=== PATIENT | male | born 1985 | race Two or more races ===

== ENCOUNTER 2020-12-29 20:55 | Observation (INO) | payer MEDICAID, OTHER ==
--- NOTE | 2020-12-29 21:54 | EDM.PDOC ---
ED HPI GENERAL MEDICAL PROBLEM - General Chief Complaint: Head Injury Stated Complaint: syncope/head trauma Time Seen by Provider: 12/29/20 21:00 Source of Information: Reports: Patient History Limitations: Reports: No Limitations - History of Present Illness INITIAL COMMENTS - FREE TEXT/NARRATIVE: Franky is a 35 year old male who presents to ER after a syncopal episode and head trauma. Patient states that since he got his vaccine last Saturday, has developed a tickle in his throat that leads to significant coughing spells. Xavier was sitting in his chair, had a coughing spell and "somehow ended up face first on the floor". Believes he "fainted" and fell to the floor. Has a large hematoma to his forehead. Was able to get self up from the floor. Has headache now. No numbness, tingling or weakness in his arms or legs. Denies visual changes. No nausea or vomiting. No epistaxis, no bleeding from ears. No chest discomfort. NO shortness of breath. Denies any lightheaded or dizziness at present. Has not had issues with syncopal episodes other than one other time this week after a coughing spell as well. Onset: Today, Sudden Duration: Minutes: Location: Reports: Head Quality: Reports: Ache Severity: Moderate Associated Symptoms: Reports: Headaches, Syncope. Denies: Confusion, Chest Pain, Cough, Fever/Chills, Loss of Appetite, Malaise, Nausea/Vomiting, Seizure, Shortness of Breath, Weakness Head Pain Score (Numeric/FACES): 6 - Related Data Allergies Allergy/AdvReac Type Severity Reaction Status Date / Time No Known Allergies Allergy Verified 12/29/20 21:27 Home Meds: Home Meds . [No Known Home Meds] 12/29/20 [History] Past Medical History - Past Health History Medical/Surgical History: Denies Medical/Surgical History Social & Family History - Tobacco Use Tobacco Use Status *Q: Never Tobacco User - Alcohol Use Days Per Week of Alcohol Use: 7 Number of Drinks Per Day: 2 Total Drinks Per Week: 14 Date of Last Drink: 12/29/20 - Recreational Drug Use Recreational Drug Use: No ED ROS GENERAL - Review of Systems Review Of Systems: See Below Constitutional: Denies: Fever, Chills, Malaise, Weakness, Fatigue, Decreased Appetite HEENT: Denies: Ear Discharge, Ear Pain, Nosebleed, Nose Pain, Rhinitis, Sinus Problem, Throat Pain, Vision Change Respiratory: Denies: Shortness of Breath, Cough Cardiovascular: Denies: Chest Pain, Edema, Lightheadedness Endocrine: Denies: Fatigue GI/Abdominal: Denies: Abdominal Pain, Constipation, Diarrhea, Nausea, Vomiting : Reports: No Symptoms Musculoskeletal: Reports: No Symptoms Skin: Reports: Wound, Other (lump to right forehead) Neurological: Denies: Confusion, Dizziness, Headache, Numbness, Syncope, Tingling, Trouble Speaking, Weakness Psychiatric: Reports: No Symptoms ED EXAM, HEAD INJURY - Physical Exam Exam: See Below Exam Limited By: No Limitations General Appearance: Alert, WD/WN, No Apparent Distress Head: Normocephalic, Scalp Hematoma Eyes: Bilateral Eye: EOMI, PERRL, Other (subconjuctival hemorrhage) Ears: Normal External Exam, Normal TMs Nose: Normal Inspection, Normal Mucousa, No Blood Throat/Mouth: Normal Inspection, Normal Oropharynx Neck: Non-Tender, Full Range of Motion, Normal Alignment Respiratory: No Respiratory Distress, Lungs Clear, Normal Breath Sounds Cardiovascular: Regular Rate, Rhythm GI/Abdominal Exam: Normal Bowel Sounds, Soft, Non-Tender Extremities: Normal Inspection, No Pedal Edema Neurologic: nurse private duty II-XII nml As Tested, No Motor/Sensory Deficits, Alert, Normal Mood/Affect, Oriented x 3 Skin: Normal Color, Warm/Dry Course - Vital Signs Last Recorded V/S: Last Vital Signs Temp 97.2 F 12/29/20 22:51 Pulse 95 12/29/20 22:51 Resp 18 12/29/20 22:51 BP 138/85 12/29/20 22:51 Pulse Ox 97 12/29/20 22:51 - Orders/Labs/Meds Orders: Medication Orders Acetaminophen (Acetaminophen 325 Mg Tab) 650 mg PO Q4H PRN PRN Reason: Pain (Mild 1-3)/fever Ondansetron HCl (Ondansetron 4 Mg Tab.Dis) 4 mg PO Q4H PRN PRN Reason: nausea, able to take PO Ondansetron HCl (Ondansetron 4 Mg/2 Ml Sdv) 4 mg IV Q4H PRN PRN Reason: Nausea/Vomiting Sodium Chloride (Sodium Chloride 0.9% 10 Ml Syringe) 10 ml FLUSH ASDIRECTED PRN PRN Reason: Keep Vein Open Meds: Medications Generic Name Dose Route Start Last Admin Trade Name Freq PRN Reason Stop Dose Admin Acetaminophen 650 mg 12/29/20 22:50 Acetaminophen 325 Mg Tab PO Q4H PRN Pain (Mild 1-3)/fever Ondansetron HCl 4 mg 12/29/20 22:50 Ondansetron 4 Mg Tab.Dis PO Q4H PRN nausea, able to take PO Ondansetron HCl 4 mg 12/29/20 22:50 Ondansetron 4 Mg/2 Ml Sdv IV Q4H PRN Nausea/Vomiting Sodium Chloride 10 ml 12/29/20 22:50 Sodium Chloride 0.9% 10 Ml Syringe FLUSH ASDIRECTED PRN Keep Vein Open - Re-Assessments/Exams Free Text/Narrative Re-Assessment/Exam: 12/29 Did contact [facility] and spoke with Dr. Bridges in regards to head trauma with lack of ability to obtain head CT. He states could do CT but do not have capacity to accept the patient if any neurological concerns as have no available beds. Is neurologically intact. Follows all commands. Is appropriate. Contacted [facility] and spoke with DR. Moore. Also feels to not have capacity to care for patient there although can do CT scan. Will admit here and continue to evaluate neuro checks, monitor telemetry and transfer if able if develops any neurological changes. Departure - Departure Time of Disposition: 21:56 Disposition: Refer to Observation Condition: Fair Clinical Impression: Concussion with less than 1 hour loss of consciousness - Discharge Information *PRESCRIPTION DRUG MONITORING PROGRAM REVIEWED*: No *COPY OF PRESCRIPTION DRUG MONITORING REPORT IN PATIENT MINA: No Sepsis Event Note (ED) - Evaluation Sepsis Screening Result: No Definite Risk - Focused Exam Vital Signs: Vital Signs Temp Pulse Resp BP Pulse Ox 12/29/20 21:45 105 H 18 134/93 H 96 12/29/20 21:23 97.8 F 109 H 18 167/112 H 99 - Problem List & Annotations (1) Concussion with less than 1 hour loss of consciousness SNOMED Code(s): 511293036 Code(s): S06.0X9A - CONCUSSION W LOSS OF CONSCIOUSNESS OF UNSP DURATION, INIT Status: Acute Priority: High Current Visit: Yes - Problem List Review Problem List Initiated/Reviewed/Updated: Yes - Assessment/Plan Admission H&P: Please use this note as an admission H&P Assessment:: Concussion with less than one hour of loss of consciousness Frontal hematoma Plan: Admit observation. Neuro evaluations. Cardiac monitoring. No CT scan available, if note any change in mental status/neuro check, will need to transfer more urgently for CT scan if available.
[2020-12-29] MEDS ORDERED: Ondansetron 4 MG/2 ML SDV IV PRN (22:50)
[2020-12-29] MEDS ORDERED: Acetaminophen 325 MG Tab PO PRN (22:50)
[2020-12-29] MEDS ORDERED: Ondansetron 4 MG Tab.DIS PO PRN (22:50)
[2020-12-29] MEDS ORDERED: Sodium Chloride 0.9% 10 ML Syringe FLUSH PRN (22:50)
--- NOTE | 2020-12-30 17:50 | CT ---
[id number] CT/CT Head WO IV EXAM: CT Head WO IV CLINICAL DATA: TRAUMA COMPARISON: No previous similar exam is available for comparison. FINDINGS: There is no mass or mass effect. There is no hemorrhage or hydrocephalus. There are no extra-axial fluid collections. There are no sites of abnormal attenuation. Soft tissue swelling is seen in the right frontal region IMPRESSION: NO PLAIN CT EVIDENCE OF ACUTE INTRACRANIAL PROCESS. Blake Espino MD 12/30/20 [id number] Thank you for allowing us to participate in the care of your patient.
--- NOTE | 2020-12-30 18:03 | PCM.DCSUM1 ---
Discharge Summary - Hospital Course Free Text/Narrative:: Franky is a 35 year old male who presented to ER after a syncopal episode and head trauma. Patient states that since he got his vaccine last Saturday, has developed a tickle in his throat that leads to significant coughing spells. Was sitting in his chair, had a coughing spell and "somehow ended up face first on the floor". Believes he "fainted" and fell to the floor. Has a large hematoma to his forehead. Was able to get self up from the floor. Had headache. No numbness, tingling or weakness in his arms or legs. Denies visual changes. No nausea or vomiting. No epistaxis, no bleeding from ears. No chest discomfort. NO shortness of breath. Denies any lightheaded or dizziness at present. Has not had issues with syncopal episodes other than one other time this week after a coughing spell as well. Neuro exam was normal in the ER. Unable to obtain CT scan as no tech available. Did consult with [facility] and [facility] in regards to transfer for CT scan but unable to take patient. Admitted to watch neuro status. Diagnosis: Stroke: No Modified Yobani Scale: No Symptoms at All Modified Whitman Scale Score: 0 - Discharge Data Discharge Date: 12/30/20 Discharge Disposition: Home, Self-Care 01 Condition: Good - Referral to Home Health Primary Care Physician: PCP None - Discharge Diagnosis/Problem(s) (1) Concussion with less than 1 hour loss of consciousness SNOMED Code(s): 102662765 ICD Code: S06.0X9A - CONCUSSION W LOSS OF CONSCIOUSNESS OF UNSP DURATION, INIT Status: Acute Priority: High Current Visit: Yes - Patient Summary/Data Complications: none Hospital Course: Patient is up and ambulatory today. Nursing staff does report that while patient sleeping, heart rate will drop down in to the 20s at times. Sleeps very soundly, snores loudly. Did discuss this with patient, concerns for AD. Also patient appeared more confused when aroused today so waiting until able to obtain CT scan this afternoon to ensure no intracranial abnormalities. CT scan is negative. No changes in neuro exam. Did discuss further follow up with primary care provider to further assess syncope in regards to a possible echocardiogram, carotid ultrasound. Sleep study. - Patient Instructions Diet: Usual Diet as Tolerated Activity: As Tolerated Other/Special Instructions: Establish care with a primary care provider. Discuss possible sleep study to rule out sleep apnea. May also need echocardiogram, carotid ultrasound to help rule out organic source of syncope - Discharge Plan *PRESCRIPTION DRUG MONITORING PROGRAM REVIEWED*: No *COPY OF PRESCRIPTION DRUG MONITORING REPORT IN PATIENT MINA: No Home Medications: Home Meds . [No Known Home Meds] 12/29/20 [History] Forms: ED Department Discharge Referrals: PCP,None [Primary Care Provider] - - Discharge Summary/Plan Comment DC Time >30 min.: No Total # of Minutes for Discharge Time: 15 - General Info Date of Service: 12/30/20 Admission Dx/Problem (Free Text: Closed Head Injury with loss of consciousness less than one hour Functional Status: Reports: Pain Controlled, Tolerating Diet, Ambulating - Review of Systems General: Denies: Fever, Weakness, Fatigue, Malaise HEENT: Reports: Headaches. Denies: Ear Pain, Eye Pain, Sinus Congestion, Sore Throat, Visual Changes Pulmonary: Denies: Shortness of Breath Cardiovascular: Denies: Chest Pain, Edema, Lightheadedness Gastrointestinal: Denies: Abdominal Pain, Nausea, Vomiting Genitourinary: Reports: No Symptoms Musculoskeletal: Reports: No Symptoms Skin: Reports: No Symptoms Neurological: Reports: No Symptoms Psychiatric: Reports: No Symptoms - Patient Data Vitals - Most Recent: Last Vital Signs Temp 97.5 F 12/30/20 17:25 Pulse 90 12/30/20 17:25 Resp 18 12/30/20 17:25 BP 132/100 H 12/30/20 17:25 Pulse Ox 99 12/30/20 17:25 Weight - Most Recent: 217 lb 6.4 oz I&O - Last 24 hours: Intake & Output 12/30/20 12/30/20 12/30/20 06:59 14:59 22:59 Intake Total 450 360 Output Total 1 Balance 449 360 Lab Results - Last 24 hrs: Laboratory Results - last 24 hr 12/29/20 Range/Units 22:15 SARS CoV-2 RNA Rapid SLOANE Negative (NEGATIVE) Med Orders - Current: Current Medications Acetaminophen (Acetaminophen 325 Mg Tab) 650 mg PO Q4H PRN PRN Reason: Pain (Mild 1-3)/fever Last Admin: 12/30/20 09:32 Dose: 650 mg Documented by: Ondansetron HCl (Ondansetron 4 Mg Tab.Dis) 4 mg PO Q4H PRN PRN Reason: nausea, able to take PO Ondansetron HCl (Ondansetron 4 Mg/2 Ml Sdv) 4 mg IV Q4H PRN PRN Reason: Nausea/Vomiting Sodium Chloride (Sodium Chloride 0.9% 10 Ml Syringe) 10 ml FLUSH ASDIRECTED PRN PRN Reason: Keep Vein Open - Exam General: Reports: Alert, Oriented HEENT: Reports: Mucous Membr. Moist/[place] Neck: Reports: Supple Lungs: Reports: Clear to Auscultation, Normal Respiratory Effort Cardiovascular: Reports: Regular Rate, Regular Rhythm GI/Abdominal Exam: Normal Bowel Sounds, Soft, Non-Tender Extremities: Normal Inspection, No Pedal Edema Skin: Reports: Warm, Dry, Ecchymosis (to forehead with abrasions to cheek, forehead) Neurological: Reports: No New Focal Deficit
== END 2020-12-30 18:00 | disposition home or self-care (01) ==
LOC: VM.ED 20:55 → VM.MS 21:59
PROVIDERS: ADMIT Physician Assistant Medical; ATTEND Physician Assistant Medical
DX: S06.0X9A Concussion with loss of consciousness of unspecified duration, initial encounter (principal); Z20.822 Contact with and (suspected) exposure to COVID-19
CPT/HCPCS: 70450; 87635; 99285; A9270; G0378; U0002